=== PATIENT | female | born 1990 | race Caucasian/White ===

== ENCOUNTER 2017-02-08 08:03 | Emergency (ER) | payer BC, MEDICAID ==
[2017-02-08 08:34] VITALS: BMI 23.4
[2017-02-08] MEDS ORDERED: Lactated Ringer's 1,000 ML IV ONE (08:36)
[2017-02-08 09:01] LABS: SQUAMOUS EPITHIAL 14 /hpf (0-5); URINE BACTERIA FEW (<OCC); URINE BILIRUBIN NEGATIVE (NEGATIVE); URINE BLOOD NEGATIVE (NEGATIVE); URINE CLARITY Hazy (Clear); URINE COLOR Yellow (YELLOW); URINE GLUCOSE (UA) NORMAL (Normal); URINE LEUKOCYTE ESTERASE TRACE Leu/uL (Negative); URINE NITRATE POSITIVE (NEGATIVE); URINE PROTEIN NEGATIVE (NEGATIVE); URINE UROBILINOGEN NORMAL mg/dL (0.2-1.0)
[2017-02-08 09:07] LABS: BARBITURATES, UR NEGATIVE (NEGATIVE)
[2017-02-08 09:08] LABS: BENZODIAZEPINES, UR POSITIVE (NEGATIVE)
[2017-02-08 09:11] LABS: OPIATES, UR POSITIVE (NEGATIVE)
[2017-02-08 09:12] LABS: PHENCYCLIDINE, UR NEGATIVE (NEGATIVE)
--- NOTE | 2017-02-08 09:59 | US ---
PROCEDURE: OB Pelvic Ultrasound HISTORY: No care; ?24 weeks; c/o no movement COMPARISON: None available. FINDINGS: UTERUS: Gestational sac: Single live intrauterine fetus in breech presentation. Heart rate: 156 bpm. BPD: 5.88 cm corresponding to 24 weeks and 0 days of gestational age. HC: 22.18 cm corresponding to 24 weeks and 1 day of gestational age. AC: 19.78 cm corresponding to 24 weeks and 3 days of gestational age. FL: 4.16 cm corresponding to 23 weeks and 4 days of gestational age. age (Ultrasound estimated): 24 weeks and 0 days [place]-gestational hemorrhage: None. Date of delivery (Ultrasound estimated) : 05/31/2017 Placenta is posterior. CERVIX: Long and closed. No cervical abnormality seen. RIGHT OVARY: Not visualized. LEFT OVARY: Not visualized. FREE FLUID: None. OTHER FINDINGS: None. IMPRESSION: Single live intrauterine fetus in breech presentation with estimated gestational age of 24 weeks and 0 days. Estimated date of delivery by ultrasound is 05/31/2017. Placenta is posterior. Cervix is elongated and closed. Please note this is a limited ultrasound examination done in the emergency room, follow-up anatomic survey is recommended.
== END 2017-02-08 09:45 | disposition home or self-care (01) ==
LOC: C.EROB 08:03
DX: O36.8130 Decreased fetal movements, third trimester, not applicable or unspecified (principal); Z3A.24 24 weeks gestation of pregnancy
CPT/HCPCS: 76815; 81001; 99283; G0480; J7120

== ENCOUNTER 2017-11-02 12:34 | Emergency (ER) | payer SELFPAY ==
[2017-11-02 12:54] VITALS: BMI 22.1
[2017-11-02 12:57] VITALS: RESP 18; TEMP 98.6; O2SAT 97
[2017-11-02] MEDS ORDERED: HYDROmorphone 0.5 mg/0.5 ml ISec IVP STA (13:26)
--- NOTE | 2017-11-02 13:28 | C.PDOC ---
History Of Present Illness 26 year old female presents to the ED for evaluation of increasing redness and swelling to right leg x 1 week. Patient reports purulent discharge today. She denies fever and trauma. INCR REDNESS, SWELLING R LEG X 1 WEEK. +PURULENT DC TODAY. NO FEVER. DENIES TRAUMA. EXAM MOD DIST NONTOXIC SKIN +APPROX 4 CM ABSCESS W PURULENT DC MEDIAL PROX R LOWER LEG W SURROUNDING CIRCUMFERENCIAL CELLULITIS. NO GROSS CREPITUS, LYMPHANGITIS\ EXT NO GROSS DEFORM NEURO INTACT REMAINDER NEG Time Seen by Provider: 11/02/17 13:11 Chief Complaint (Nursing): Abnormal Skin Integrity History Per: Patient History/Exam Limitations: no limitations Current Symptoms Are (Timing): Worse Location Of Injury: Right: Leg Quality Of Symptoms: Swollen, Draining, Other (redness ) Additional History Per: Patient Past Medical History Reviewed: Historical Data, Nursing Documentation, Vital Signs Vital Signs: Last Vital Signs Temp 98.6 F 11/02/17 12:55 Pulse 90 11/02/17 14:31 Resp 18 11/02/17 14:31 BP 110/74 11/02/17 14:31 Pulse Ox 97 11/02/17 15:05 - Medical History PMH: Denies: Depression, Diabetes, HTN Surgical History: No Surg Hx - [facility] Procedures EXTRACTION OF PRODUCTS OF CONCEPTION, VACUUM, VIA OPENING (05/17/17) INSPECTION OF UTERUS AND CERVIX, EXTERNAL APPROACH (05/17/17) REPAIR PERINEUM MUSCLE, OPEN APPROACH (05/17/17) Family History: States: Unknown Family Hx - Social History Hx Alcohol Use: No Hx Substance Use: No - Immunization History Hx Tetanus Toxoid Vaccination: No Hx Influenza Vaccination: No Hx Pneumococcal Vaccination: No Review Of Systems Skin: Positive for: Other (redness and swelling to right leg, with purulent discharge ) Physical Exam - Physical Exam Appears: Non-toxic, Other (in moderate distress ) Skin: Warm, Dry, Other (approximately 4cm abscess with purulent discharge to medial proximal right lower leg with surroudning circumferential cellulitis. no gross crepitus, lymphangitis) Head: Atraumatic, Normacephalic Eye(s): bilateral: Normal Inspection Oral Mucosa: Moist Neck: Supple Chest: Symmetrical, No Deformity, No Tenderness Cardiovascular: Rhythm Regular, No Murmur Respiratory: Normal Breath Sounds, No Rales, No Rhonchi, No Wheezing Extremity: Normal ROM, Capillary Refill (less than 2 seconds ) Neurological/Psych: Oriented x3, Normal Speech, Normal Cognition ED Course And Treatment - Laboratory Results Result Diagrams: 11/02/17 13:56 11/02/17 13:56 O2 Sat by Pulse Oximetry: 97 Progress Note: Bloodwork and Right Tibia Fibula XR ordered and reviewed. Ancef IVP, Dilaudid IVP, Toradol IVP, Vancomycin IVP administered. Progress - Re-Evaluation Re-evaluation Note: 11/02/17 13:30 D/W SURGERY RESIDENT WILL EVLA IN ER 11/02/17 14:37 ADMIT TO MED PER DR HA D/W DR WISE WILL ADMIT - Data Reviewed Data Reviewed: Lab, Diagnostic imaging Disposition Counseled Patient/Family Regarding: Studies Performed, Diagnosis - Disposition Disposition: HOSPITALIZED Disposition Time: 14:38 Condition: STABLE - POA Present On Arrival: None - Clinical Impression Clinical Impression: Leg abscess, Cellulitis - Scribe Statement The provider has reviewed the documentation as recorded by the Scribe (Maya Howard) Provider Attestation: All medical record entries made by the Scribe were at my direction and personally dictated by me. I have reviewed the chart and agree that the record accurately reflects my personal performance of the history, physical exam, medical decision making, and the department course for this patient. I have also personally directed, reviewed, and agree with the discharge instructions and disposition. Decision To Admit - Pt Status Changed To: Hospital Disposition Of: Inpatient - Admit Certification Admit to Inpatient:: After my assessment, the patient will require hospitalization for at least two midnights. This is because of the severity of symptoms shown, intensity of services needed, and/or the medical risk in this patient being treated as an outpatient. - InPatient: Physician Admission Certification: I certify that this patient requires 2 or more midnights of care for the following reason:: SEE NOTE - . Bed Request Type: Regular Admitting Physician: Eladio Wise Patient Diagnosis: Leg abscess, Cellulitis Addendum Addendum: 11/02/17 17:35 PT ELOPED MAKING MULTIPLE DEMANDS FOR IV PAIN RX. REFUSING TO WAIT FOR O.R. FOR TREATMENT
--- NOTE | 2017-11-02 13:42 | RAD ---
PROCEDURE: Radiographs of the right tibia and fibula. HISTORY: ABSCESS COMPARISON: None available. TECHNIQUE: Frontal and lateral views obtained. FINDINGS: BONES: No there is no acute fracture or bone destruction. Bone alignment and mineralization are normal. JOINT SPACES: Unremarkable. OTHER FINDINGS: There is medial superficial soft tissue thickening in the proximal leg. No evidence of soft tissue gas. IMPRESSION: No radiographic evidence for osteomyelitis. Medial superficial soft tissue thickening in the proximal leg which may represent cellulitis.
[2017-11-02] MEDS ORDERED: Vancomycin 1 gm/NS 200 ml 1 GM/200 ML BAG IVPB ONE (13:45)
[2017-11-02 14:00] LABS: BASO % 0.4 % (0.0-2.0); EOS # 0.3 K/uL (0.0-0.7); EOS % 2.8 % (0.0-4.0); HEMOGLOBIN 12.2 g/dL (11.0-16.0); LYMPH # 1.8 K/uL (1.0-4.3); LYMPH % 19.5 % (20.0-40.0); MEAN CELL VOLUME 85.8 fL (81.0-99.0); MEAN CORPUSCULAR HEMOGLOBIN 29.5 pg (27.0-31.0); MEAN CORPUSCULAR HGB CONC 34.3 g/dL (33.0-37.0); MEAN PLATELET VOLUME 8.3 fL (7.2-11.7); MONO # 0.6 K/uL (0.0-0.8); MONO % 6.3 % (0.0-10.0); NEUT # 6.5 K/uL (1.8-7.0); RBC 4.14 Mil/uL (3.80-5.20); RED CELL DISTRIBUTION WIDTH 14.6 % (11.5-14.5); WHITE BLOOD COUNT 9.2 K/uL (4.8-10.8)
[2017-11-02 14:13] LABS: BLOOD UREA NITROGEN 13 mg/dL (7-17); CALCIUM 9.4 mg/dl (8.6-10.4); GFR AFRICAN-AMERICAN > 60; GFR NON-AFRICAN AMERICAN > 60
[2017-11-02 14:32] VITALS: BP 110/74; PULSE 90
--- NOTE | 2017-11-02 14:50 | CP.PCM.CON ---
History of Present Illness - History of Present Illness History of Present Illness: PGY-[address] Harper. Mrs Corbett is a 26 year old female with no significant past medical history who presents to [facility] ER for a right lower leg bruise which she first noticed 1 week ago. As an inciting event she says she used a ricardo razor 1 week ago to shave her leg, after which she noticed an ingrown hair at the bruise site. Over the course of the week that area became swollen and red. In the last 2 days the site significantly worsened with breakthrough of the skin and pus formation. She rates the pain a 10/10. she did not attempt any alleviating factors. She denies fever, chills, nausea, vomiting, diarrhea, chest pain, shortness of breath. PMHx: Denies PSHx: Denies Allergies: NKA Home meds: None FamHx: Grandmother with DM2 SocialHx: Smokes 2-3 cigarettes per day for past 10 years; denies alcohol or illicit drug use; lives with mother at home Review of Systems - Constitutional Constitutional: absent: Chills, Fever, Headache, Weight Loss - EENT Eyes: absent: Change in Vision - Cardiovascular Cardiovascular: absent: Chest Pain, Paroxysmal Nocturnal Dyspnea - Respiratory Respiratory: absent: Cough - Gastrointestinal Gastrointestinal: absent: Abdominal Pain, Belching, Constipation, Diarrhea - Genitourinary Genitourinary: absent: Dysuria - Musculoskeletal Musculoskeletal: absent: Arthralgias - Integumentary Integumentary: Bleeding Lesions, Furuncle, New Lesions, Skin Pain, Swelling, Unusual Bruising - Neurological Neurological: absent: Confusion Past Patient History - Past Social History Smoking Status: Current Some Days Smoker - CARDIAC Hx Hypertension: No - PSYCHIATRIC Hx Depression: No Hx Substance Use: No - SURGICAL HISTORY Hx Surgeries: No - ANESTHESIA Hx Anesthesia: No Meds Allergies/Adverse Reactions: Allergies Allergy/AdvReac Type Severity Reaction Status Date / Time No Known Allergies Allergy Verified 11/02/17 12:52 - Medications Medications: Current Medications Vancomycin/Sodium Chloride (Vancomycin 1 Gm/Ns 200 Ml) 1 gm in 200 mls @ 75 mls /hr IVPB ONCE ONE PRN Reason: Protocol Stop: 11/02/17 16:24 Physical Exam - Constitutional Appears: In Acute Distress - Head Exam Head Exam: ATRAUMATIC, NORMAL INSPECTION - Eye Exam Eye Exam: EOMI Pupil Exam: PERRL - ENT Exam ENT Exam: Mucous Membranes Moist - Neck Exam Neck exam: Positive for: Normal Inspection. Negative for: Lymphadenopathy, Tenderness - Respiratory Exam Respiratory Exam: Clear to Auscultation Bilateral, NORMAL BREATHING PATTERN. absent: Rales, Rhonchi, Wheezes - Cardiovascular Exam Cardiovascular Exam: Tachycardia, REGULAR RHYTHM, +S1, +S2. absent: Bradycardia , JVD, Systolic Murmur - GI/Abdominal Exam GI & Abdominal Exam: Normal Bowel Sounds, Soft. absent: Tenderness - Extremities Exam Extremities exam: Positive for: calf tenderness, normal capillary refill, pedal pulses present Additional comments: right lower extremity on medial aspect of daniels - circumscribed raised erythematous lesion 4 cm x 4 cm with induration, with necrosis and sloughing at center, painful to touch Results - Vital Signs Recent Vital Signs: Last Vital Signs Temp 98.6 F 11/02/17 12:55 Pulse 90 11/02/17 14:31 Resp 18 11/02/17 14:31 BP 110/74 11/02/17 14:31 Pulse Ox 97 11/02/17 14:43 - Labs Result Diagrams: 11/02/17 13:56 11/02/17 13:56 Labs: Laboratory Results - last 24 hr 11/02/17 11/02/17 13:56 13:56 WBC 9.2 RBC 4.14 Hgb 12.2 D Hct 35.6 MCV 85.8 MCH 29.5 MCHC 34.3 RDW 14.6 H Plt Count 378 MPV 8.3 Neut % (Auto) 71.0 Lymph % (Auto) 19.5 L [place] % (Auto) 6.3 Eos % (Auto) 2.8 Baso % (Auto) 0.4 Neut # (Auto) 6.5 Lymph # (Auto) 1.8 [place] # (Auto) 0.6 Eos # (Auto) 0.3 Baso # (Auto) 0.0 Sodium 141 Potassium 4.2 Chloride 98 Carbon Dioxide 31 H Anion Gap 17 BUN 13 Creatinine 0.9 Est GFR ( Amer) > 60 Est GFR (Non-Af Amer) > 60 Random Glucose 118 H Calcium 9.4 Assessment & Plan (1) Leg abscess Assessment and Plan: -Right lower leg abscess -Abx, F/U cultures -Pain control -Bedside I&D could be attempted however given severity of pain and pharmacy with low supply of pain medicines, patient might need to go to OR -Keep NPO for now -Will discuss with Dr Harper Imaging: Right leg xray: * No radiographic evidence for osteomyelitis. Medial superficial soft tissue thickening in the proximal leg which may represent cellulitis. Status: Acute Priority: High
[2017-11-02] MEDS ORDERED: Oxycodone/Acetaminophen 5/325 mg Tab PO PRN (15:13)
--- NOTE | 2017-11-02 15:21 | CP.PCM.HP ---
History of Present Illness - History of Present Illness History of Present Illness: HPI: Patient is a 26F with no past medical history who comes to the ED with a chief complaint of R/ leg abscess. States she was shaving 4 days ago with an old ricardo razor as she usually does. The next day she experienced what she thought was an ingrown hair as she has experienced these before. However, this time the area became very painful and the surrounding area became red and warm and then became a collection and the top became ulcerated and started weeping. Denies fevers or chills. PMH: None PSH: none FH: none SH: denies smoking, drinking, drugs Meds: none All: none Present on Admission - Present on Admission Any Indicators Present on Admission: No Review of Systems - Review of Systems Review of Systems: per HPI Past Patient History - Past Social History Smoking Status: Current Some Days Smoker - CARDIAC Hx Hypertension: No - PSYCHIATRIC Hx Depression: No Hx Substance Use: No - SURGICAL HISTORY Hx Surgeries: No - ANESTHESIA Hx Anesthesia: No Meds Allergies/Adverse Reactions: Allergies Allergy/AdvReac Type Severity Reaction Status Date / Time No Known Allergies Allergy Verified 11/02/17 12:52 Physical Exam - Constitutional Appears: In Acute Distress - Head Exam Head Exam: ATRAUMATIC, NORMAL INSPECTION, NORMOCEPHALIC - Eye Exam Eye Exam: EOMI Pupil Exam: NORMAL ACCOMODATION - ENT Exam ENT Exam: Mucous Membranes Moist - Respiratory Exam Respiratory Exam: Clear to Auscultation Bilateral, NORMAL BREATHING PATTERN - Cardiovascular Exam Cardiovascular Exam: REGULAR RHYTHM - GI/Abdominal Exam GI & Abdominal Exam: Normal Bowel Sounds, Soft. absent: Distended, Tenderness - Extremities Exam Additional comments: 2x3cm circular abscess with ulceration and surrounding area of increased warmth and erythema Results - Vital Signs Recent Vital Signs: Last Vital Signs Temp 98.6 F 11/02/17 12:55 Pulse 90 11/02/17 14:31 Resp 18 11/02/17 14:31 BP 110/74 11/02/17 14:31 Pulse Ox 97 11/02/17 15:05 - Labs Result Diagrams: 11/02/17 13:56 11/02/17 13:56 Labs: Laboratory Results - last 24 hr 11/02/17 11/02/17 13:56 13:56 WBC 9.2 RBC 4.14 Hgb 12.2 D Hct 35.6 MCV 85.8 MCH 29.5 MCHC 34.3 RDW 14.6 H Plt Count 378 MPV 8.3 Neut % (Auto) 71.0 Lymph % (Auto) 19.5 L [place] % (Auto) 6.3 Eos % (Auto) 2.8 Baso % (Auto) 0.4 Neut # (Auto) 6.5 Lymph # (Auto) 1.8 [place] # (Auto) 0.6 Eos # (Auto) 0.3 Baso # (Auto) 0.0 Sodium 141 Potassium 4.2 Chloride 98 Carbon Dioxide 31 H Anion Gap 17 BUN 13 Creatinine 0.9 Est GFR ( Amer) > 60 Est GFR (Non-Af Amer) > 60 Random Glucose 118 H Calcium 9.4 Assessment & Plan (1) Leg abscess Assessment and Plan: Surgery ([place]) ID ([place]) OR later today Vanco 1g Q12H Percocet Q6 for pain F/U wound culture Status: Acute Priority: High (2) Prophylactic measure Assessment and Plan: No indication for chemical VTE ppx Status: Acute
[2017-11-02] MEDS ORDERED: Oxycodone/Acetaminophen 5/325 mg Tab ONE (15:24)
[2017-11-02] MEDS ORDERED: Clindamycin 600mg/50ml D5W 600 MG/50 ML VIAL IVPB SCH (15:30)
[2017-11-02] MEDS ORDERED: Piperacill/Tazo 3.375gm in Dex 3.375 GM/50 ML BAG IVPB SCH (16:00)
[2017-11-02] MEDS ORDERED: Tetanus/Diphtheria Toxoids 0.5 ml Syringe IM ONE (16:22)
[2017-11-03] MEDS ORDERED: Vancomycin 1 gm/NS 200 ml 1 GM/200 ML BAG IVPB SCH (03:30)
== END 2017-11-02 17:45 | disposition left against medical advice (07) ==
LOC: C.ER 12:34 → UNDOADMIN 14:39 → C.9E 14:39 → C.3T 16:50 → C.9E 18:05 → C.3T 18:05
DX: L02.415 Cutaneous abscess of right lower limb (principal); L03.115 Cellulitis of right lower limb; F17.210 Nicotine dependence, cigarettes, uncomplicated; Z23 Encounter for immunization
CPT/HCPCS: 73590; 80048; 85025; 87040; 90471; 90714; 96365; 96367; 96375; 99284; J0690; J1170; J2543; J3370